=== PATIENT | male | born 1970 | race Two or more races ===

== ENCOUNTER 2016-07-29 21:52 | Emergency (ER) | payer MEDICAID ==
[~2016-07-29] VITALS: Ht 172.7 cm; Wt 77.0 kg
[2016-07-30] MEDS ORDERED: MORPHINE SULFATE 4 MG/ML SYRINGE IM ONE
[2016-07-30 00:31] VITALS: BP 122/78
== END 2016-07-30 01:15 | disposition home or self-care (01) ==
LOC: EMS 21:54
DX: S82.201A Unspecified fracture of shaft of right tibia, initial encounter for closed fracture (principal); F17.210 Nicotine dependence, cigarettes, uncomplicated; W50.1XXA Accidental kick by another person, initial encounter; Y93.66 Activity, soccer; Y92.89 Other specified places as the place of occurrence of the external cause; Y99.8 Other external cause status
CPT/HCPCS: 29505; 73590; 96372; 99284; J2270

== ENCOUNTER 2016-08-06 12:16 | Emergency (ER) | payer SELFPAY ==
[~2016-08-06] VITALS: Ht 172.7 cm; Wt 77.3 kg
[2016-08-06 12:55] VITALS: BP 118/59
[2016-08-06] MEDS ORDERED: HYDROCODONE/ACETAMINOPHEN 5-325 MG TABLET PO ONE (13:15)
== END 2016-08-06 13:16 | disposition home or self-care (01) ==
LOC: EMS 12:17
DX: S82.201D Unspecified fracture of shaft of right tibia, subsequent encounter for closed fracture with routine healing (principal); X58.XXXD Exposure to other specified factors, subsequent encounter; F17.210 Nicotine dependence, cigarettes, uncomplicated
CPT/HCPCS: 29505; 99283